=== PATIENT | female | born 1950 | race Caucasian/White ===

== ENCOUNTER 2022-07-30 11:38 | Inpatient (IN) | payer OTHER, MEDICAID ==
[~2022-07-30] VITALS: Ht 152.4 cm; Wt 63.5 kg
[2022-07-30] MEDS ORDERED: NS 1000 ML IV.SOLN IV ONE (11:45)
[2022-07-30 12:01] VITALS: BP_SYST 96
[2022-07-30 12:10] LABS: BASOPHILS % (AUTO) 0.3 % (0.0-2.0); EOSINOPHILS # (AUTO) 0.1 K/uL (0.0-0.4); EOSINOPHILS % (AUTO) 0.9 % (0.0-4.0); HEMATOCRIT 41.4 % (36-48); HEMOGLOBIN 13.6 g/dL (12.0-16.0); LYMPHOCYTES # (AUTO) 0.7 K/uL (1.0-5.5); LYMPHOCYTES % (AUTO) 8.2 % (20.5-51.5); MEAN CORPUSCULAR HEMOGLOBIN 29 pg (27-31); MEAN CORPUSCULAR HGB CONC 33 % (32-36); MEAN CORPUSCULAR VOLUME 87 fL (79.0-98.0); MONOCYTES # (AUTO) 0.4 K/uL (0.0-1.0); MONOCYTES % (AUTO) 4.8 % (1.7-9.3); NEUTROPHILS # (AUTO) 7.1 K/uL (1.8-7.7); NEUTROPHILS % (AUTO) 85.8 % (40.0-70.0); PLATELET COUNT (AUTO) 166 K/uL (130-430); RED BLOOD CELL COUNT(AUTO) 4.73 MIL/uL (4.2-6.2); WHITE BLOOD COUNT (AUTO) 8.3 K/uL (4.8-10.8)
[2022-07-30 12:31] LABS: ANION GAP 11 (5-15); CALCIUM 8.7 mg/dL (8.4-11.0); CHLORIDE 109 mmol/L (98-107); CREATININE 0.99 mg/dL (0.55-1.30); GLUCOSE 118 mg/dL (70-99); UREA NITROGEN, BLOOD 31 mg/dL (8-21)
[2022-07-30 12:37] LABS: ALANINE AMINOTRANSFERASE 22 U/L (12-78); ALBUMIN 3.1 g/dL (3.4-4.8); ASPARTATE AMINOTRANSFERASE 17 U/L (10-37); TOTAL BILIRUBIN 0.3 mg/dL (0.0-1.0)
[2022-07-30 13:04] LABS: GFR AFRICAN AMERICAN 71 mL/min (>90)
[2022-07-30] MEDS ORDERED: ONDANSETRON HCL 4 MG/2 ML VIAL IVP PRN (20:30)
[2022-07-30] MEDS ORDERED: PANTOPRAZOLE SODIUM 40 MG/VIAL (PROTONIX) IVP SCH (21:00)
[2022-07-30 21:15] VITALS: BP_SYST 125
[2022-07-30] MEDS: LR 1,000 ML IV SCH (23:15)
[2022-07-31 00:22] VITALS: BP_SYST 152
[2022-07-31] MEDS ORDERED: ACETAMINOPHEN 325 MG TABLET PO PRN (00:30)
[2022-07-31] MEDS ORDERED: ZOLPIDEM TARTRATE 5 MG TABLET PO PRN (00:30)
[2022-07-31] MEDS: LR 1,000 ML IV SCH ×2 (06:50→17:44)
[2022-07-31 08:10] VITALS: BP_SYST 141
[2022-07-31] MEDS ORDERED: MELA1TAB29 PO (09:11)
[2022-07-31] MEDS ORDERED: OMEP40CA20 PO (09:11)
[2022-07-31] MEDS ORDERED: SENN-228 PO (09:11)
[2022-07-31] MEDS ORDERED: CYAN100T44 PO (09:11)
[2022-07-31] MEDS ORDERED: LIP40 PO (09:11)
[2022-07-31] MEDS ORDERED: LYR50 PO (09:11)
[2022-07-31] MEDS ORDERED: AMLO-61 PO (09:11)
[2022-07-31] MEDS ORDERED: LEVO75TA7 PO (09:11)
[2022-07-31] MEDS ORDERED: VITD2000 PO (09:11)
[2022-07-31 12:25] LABS: CALCIUM 9.2 mg/dL (8.4-11.0); CREATININE 0.98 mg/dL (0.55-1.30)
[2022-07-31 12:26] LABS: BASOPHILS % (AUTO) 0.5 % (0.0-2.0); EOSINOPHILS % (AUTO) 0.8 % (0.0-4.0); HEMATOCRIT 39.1 % (36-48); LYMPHOCYTES # (AUTO) 0.6 K/uL (1.0-5.5); LYMPHOCYTES % (AUTO) 16.1 % (20.5-51.5); MEAN CORPUSCULAR HEMOGLOBIN 29 pg (27-31); MEAN CORPUSCULAR HGB CONC 33 % (32-36); MEAN CORPUSCULAR VOLUME 86 fL (79.0-98.0); MONOCYTES # (AUTO) 0.4 K/uL (0.0-1.0); MONOCYTES % (AUTO) 10.4 % (1.7-9.3); NEUTROPHILS # (AUTO) 2.9 K/uL (1.8-7.7); NEUTROPHILS % (AUTO) 72.2 % (40.0-70.0); PLATELET COUNT (AUTO) 164 K/uL (130-430); RED BLOOD CELL COUNT(AUTO) 4.52 MIL/uL (4.2-6.2); WHITE BLOOD COUNT (AUTO) 3.9 K/uL (4.8-10.8)
[2022-07-31 12:40] LABS: ALBUMIN 3.1 g/dL (3.4-4.8); FREE T4 (FREE THYROXINE) 1.1 ng/dl (0.8-1.5); THYROID STIMULATING HORMONE 0.95 uIu/mL (0.36-3.74); TOTAL BILIRUBIN 0.5 mg/dL (0.0-1.0)
[2022-07-31 12:45] VITALS: BP_SYST 132
[2022-07-31] MEDS ORDERED: LOPERAMIDE HCL 2 MG CAPSULE PO PRN ×2 (13:00→14:00)
[2022-07-31] MEDS ORDERED: NON-FORMULARY MEDICATION (Melatonin/Pyridoxine HCl (B6) (Melatonin 3 mg Tablet) 1 TAB) PO PRN (13:45)
[2022-07-31] MEDS ORDERED: LOPERAMIDE HCL 2 MG CAPSULE PO ONE (14:00)
[2022-07-31] MEDS ORDERED: ACETAMINOPHEN 325 MG TABLET PO ONE (14:00)
[2022-07-31] MEDS ORDERED: LOPERAMIDE HCL 2 MG CAPSULE ONE (14:32)
[2022-07-31 15:50] VITALS: BP_SYST 152
[2022-07-31] MEDS ORDERED: MELATONIN 3 MG TABLET PO PRN (16:00)
[2022-07-31] MEDS: LIPASE/PROTEASE/AMYLASE 1 CAP PO SCH (17:44)
[2022-07-31 18:22] LABS: BILIRUBIN,URINE NEGATIVE (NEGATIVE); BLOOD, URINE NEGATIVE (NEGATIVE); CLARITY/URINE CLEAR (CLEAR); COLOR,URINE YELLOW (YELLOW); GLUCOSE,URINE NEGATIVE (NEGATIVE); KETONES,URINE NEGATIVE (NEGATIVE); LEUKOCYTE ESTERASE ,URINE NEGATIVE (NEGATIVE); NITRITE, URINE NEGATIVE (NEGATIVE); PROTEIN URINE NEGATIVE (NEGATIVE); UROBILINOGEN,URINE 0.2 (0.2-1.0)
[2022-07-31 20:00] VITALS: BP_SYST 163
[2022-07-31] MEDS: PREGABALIN 25 MG CAPSULE (LYRICA) PO SCH (21:58)
[2022-07-31] MEDS: ATORVASTATIN 20 MG TABLET PO SCH (21:58)
[2022-08-01] VITALS (7 sets, daily range): BP systolic 127–166
[2022-08-01] MEDS: LR 1,000 ML IV SCH ×3 (02:30→16:38)
[2022-08-01] MEDS: LEVOTHYROXINE SODIUM 0.075 MG TABLET PO SCH (06:17)
[2022-08-01 07:04] LABS: BASOPHILS % (AUTO) 0.5 % (0.0-2.0); EOSINOPHILS % (AUTO) 0.7 % (0.0-4.0); HEMATOCRIT 35.8 % (36-48); LYMPHOCYTES # (AUTO) 0.5 K/uL (1.0-5.5); LYMPHOCYTES % (AUTO) 12.4 % (20.5-51.5); MEAN CORPUSCULAR HEMOGLOBIN 29 pg (27-31); MEAN CORPUSCULAR HGB CONC 34 % (32-36); MEAN CORPUSCULAR VOLUME 86 fL (79.0-98.0); MONOCYTES # (AUTO) 0.6 K/uL (0.0-1.0); MONOCYTES % (AUTO) 13.9 % (1.7-9.3); NEUTROPHILS # (AUTO) 3.1 K/uL (1.8-7.7); NEUTROPHILS % (AUTO) 72.5 % (40.0-70.0); PLATELET COUNT (AUTO) 137 K/uL (130-430); RED BLOOD CELL COUNT(AUTO) 4.17 MIL/uL (4.2-6.2); RED CELL DISTRIBUTION WIDTH 14.7 % (9.0-15.0); WHITE BLOOD COUNT (AUTO) 4.3 K/uL (4.8-10.8)
[2022-08-01 07:53] LABS: ALBUMIN 2.8 g/dL (3.4-4.8); CALCIUM 8.1 mg/dL (8.4-11.0); CREATININE 0.95 mg/dL (0.55-1.30); THYROID STIMULATING HORMONE 2.01 uIu/mL (0.34-4.82); TOTAL BILIRUBIN 0.5 mg/dL (0.0-1.0)
[2022-08-01] MEDS: LIPASE/PROTEASE/AMYLASE 1 CAP PO SCH ×3 (08:54→17:52)
[2022-08-01] MEDS: CHOLECALCIFEROL (VITAMIN D3) 2,000 UNIT TABLET PO SCH (08:54)
[2022-08-01] MEDS: CYANOCOBALAMIN 1000 mCg TABLET PO SCH (08:54)
[2022-08-01] MEDS: PREGABALIN 25 MG CAPSULE (LYRICA) PO SCH ×2 (08:55→21:18)
[2022-08-01] MEDS: PANTOPRAZOLE SODIUM 40 MG TAB PO SCH (08:55)
[2022-08-01] MEDS ORDERED: CYANOCOBALAMIN 500 MCG PO SCH (09:00)
[2022-08-01] MEDS ORDERED: OMEPRAZOLE Non-Formulary 20 MG CAPSULE.DR PO SCH (09:00)
[2022-08-01] MEDS: ACETAMINOPHEN 325 MG TABLET PO PRN (09:06)
[2022-08-01] MEDS: ATORVASTATIN 20 MG TABLET PO SCH (21:16)
[2022-08-02] VITALS: BP_SYST 135
[2022-08-02] MEDS: LEVOTHYROXINE SODIUM 0.075 MG TABLET PO SCH (06:01)
[2022-08-02 08:00] VITALS: BP_SYST 142
[2022-08-02] MEDS: PREGABALIN 25 MG CAPSULE (LYRICA) PO SCH ×2 (08:21→21:22)
[2022-08-02] MEDS: LIPASE/PROTEASE/AMYLASE 1 CAP PO SCH ×3 (08:21→18:16)
[2022-08-02] MEDS: PANTOPRAZOLE SODIUM 40 MG TAB PO SCH (08:21)
[2022-08-02] MEDS: CYANOCOBALAMIN 1000 mCg TABLET PO SCH (08:22)
[2022-08-02] MEDS: CHOLECALCIFEROL (VITAMIN D3) 2,000 UNIT TABLET PO SCH (08:22)
[2022-08-02] MEDS: ACETAMINOPHEN 325 MG TABLET PO PRN ×2 (08:42→16:17)
[2022-08-02] MEDS ORDERED: PSYLLIUM HUSK 1 PKT PACKET PO ONE (09:15)
[2022-08-02 12:05] VITALS: BP_SYST 130
[2022-08-02] MEDS ORDERED: AMYL1CAP54 PO (13:38)
[2022-08-02 15:50] VITALS: BP_SYST 144
[2022-08-02 20:00] VITALS: BP_SYST 153
[2022-08-02] MEDS: ATORVASTATIN 20 MG TABLET PO SCH (21:22)
[2022-08-02] MEDS: PSYLLIUM HUSK 1 PKT PACKET PO SCH (21:23)
[2022-08-03] VITALS: BP_SYST 149
[2022-08-03] MEDS: LEVOTHYROXINE SODIUM 0.075 MG TABLET PO SCH (06:21)
[2022-08-03 08:00] VITALS: BP_SYST 173
[2022-08-03] MEDS: LIPASE/PROTEASE/AMYLASE 1 CAP PO SCH ×3 (08:46→17:16)
[2022-08-03] MEDS: PANTOPRAZOLE SODIUM 40 MG TAB PO SCH (08:47)
[2022-08-03] MEDS: CHOLECALCIFEROL (VITAMIN D3) 2,000 UNIT TABLET PO SCH (08:47)
[2022-08-03] MEDS: CYANOCOBALAMIN 1000 mCg TABLET PO SCH (08:48)
[2022-08-03] MEDS: PREGABALIN 25 MG CAPSULE (LYRICA) PO SCH ×2 (08:49→20:39)
[2022-08-03] MEDS: PSYLLIUM HUSK 1 PKT PACKET PO SCH ×2 (09:00→20:44)
[2022-08-03] MEDS: ACETAMINOPHEN 325 MG TABLET PO PRN (12:13)
[2022-08-03 12:50] VITALS: BP_SYST 146
[2022-08-03] MEDS: IBUPROFEN 400 MG TABLET PO SCH ×2 (14:36→20:43)
[2022-08-03 16:50] VITALS: BP_SYST 130
[2022-08-03 20:00] VITALS: BP_SYST 127
[2022-08-03] MEDS: ATORVASTATIN 20 MG TABLET PO SCH (20:39)
[2022-08-04 00:40] VITALS: BP_SYST 143
[2022-08-04] MEDS: ACETAMINOPHEN 325 MG TABLET PO PRN (00:44)
[2022-08-04] MEDS: LEVOTHYROXINE SODIUM 0.075 MG TABLET PO SCH (07:02)
[2022-08-04 07:12] LABS: BASOPHILS % (AUTO) 0.7 % (0.0-2.0); EOSINOPHILS # (AUTO) 0.2 K/uL (0.0-0.4); HEMATOCRIT 32.2 % (36-48); HEMOGLOBIN 10.9 g/dL (12.0-16.0); LYMPHOCYTES # (AUTO) 0.9 K/uL (1.0-5.5); MEAN CORPUSCULAR HEMOGLOBIN 29 pg (27-31); MEAN CORPUSCULAR HGB CONC 34 % (32-36); MEAN CORPUSCULAR VOLUME 85 fL (79.0-98.0); MONOCYTES # (AUTO) 0.5 K/uL (0.0-1.0); MONOCYTES % (AUTO) 12.1 % (1.7-9.3); NEUTROPHILS # (AUTO) 2.9 K/uL (1.8-7.7); NEUTROPHILS % (AUTO) 63.2 % (40.0-70.0); PLATELET COUNT (AUTO) 137 K/uL (130-430); RED BLOOD CELL COUNT(AUTO) 3.79 MIL/uL (4.2-6.2); WHITE BLOOD COUNT (AUTO) 4.5 K/uL (4.8-10.8)
[2022-08-04 08:00] VITALS: BP_SYST 137
[2022-08-04 08:21] LABS: CALCIUM 8.5 mg/dL (8.4-11.0); CREATININE 0.83 mg/dL (0.55-1.30)
[2022-08-04] MEDS: CYANOCOBALAMIN 1000 mCg TABLET PO SCH (08:50)
[2022-08-04] MEDS: LIPASE/PROTEASE/AMYLASE 1 CAP PO SCH (08:50)
[2022-08-04] MEDS: CHOLECALCIFEROL (VITAMIN D3) 2,000 UNIT TABLET PO SCH (08:51)
[2022-08-04] MEDS: PREGABALIN 25 MG CAPSULE (LYRICA) PO SCH (08:51)
[2022-08-04] MEDS: PANTOPRAZOLE SODIUM 40 MG TAB PO SCH (08:51)
[2022-08-04] MEDS: IBUPROFEN 400 MG TABLET PO SCH (08:51)
[2022-08-04] MEDS: PSYLLIUM HUSK 1 PKT PACKET PO SCH (08:55)
[2022-08-04 17:15] VITALS: BP_SYST 143
[2022-08-04 17:18] VITALS: BP_SYST 144
[2022-08-04 17:22] VITALS: BP_SYST 139
[2022-08-04 18:11] VITALS: BP_SYST 144
== END 2022-08-04 19:20 | disposition home or self-care (01) | DRG 391 ==
LOC: SED 11:38 → STU 15:18
PROVIDERS: ADMIT Internal Medicine; ATTEND Internal Medicine
PROC: 05HY33Z Insertion of Infusion Device into Upper Vein, Percutaneous Approach (ICD-10-PCS; principal; 2022-07-31)
PROC: B54NZZA Ultrasonography of Left Upper Extremity Veins, Guidance (ICD-10-PCS; 2022-07-31)
DX: A08.4 Viral intestinal infection, unspecified (principal); J96.01 Acute respiratory failure with hypoxia; I95.9 Hypotension, unspecified; E86.0 Dehydration; K21.9 Gastro-esophageal reflux disease without esophagitis; Z96.651 Presence of right artificial knee joint; I10 Essential (primary) hypertension; E78.5 Hyperlipidemia, unspecified; K86.89 Other specified diseases of pancreas; Z20.822 Contact with and (suspected) exposure to COVID-19; E03.9 Hypothyroidism, unspecified; G89.4 Chronic pain syndrome; K59.00 Constipation, unspecified; Z79.899 Other long term (current) drug therapy
CPT/HCPCS: 36415; 71045; 71100; 76376; 80048; 80053; 80061; 81003; 83605; 83690; 83735; 83880; 84439; 84443; 84484; 85025; 87040; 93005; 93306; 93880; 97116-GP; 97530-GP; 99285; C1751; C9113; G0378; J7120